=== PATIENT | female | born 1965 | race Caucasian/White ===

== ENCOUNTER 2016-07-29 14:50 | Emergency (ER) | payer MEDICAID ==
[2016-07-29] MEDS ORDERED: ALBUTEROL NEB 2.5 MG/3 ML INH STA (15:44)
[2016-07-29] MEDS ORDERED: DEXAMETHASONE 10 MG/ML VIAL PO STA (15:44)
[2016-07-29] MEDS ORDERED: guaiFENesin/CODEINE 5 ML UDC PO STA (15:44)
[2016-07-29] MEDS ORDERED: DEXAMETHASONE 10 MG/ML VIAL ONE (15:47)
[2016-07-29] MEDS ORDERED: CHERRY SYRUP 10 ML UDC PO ONE (15:47)
[2016-07-29] MEDS ORDERED: guaiFENesin/CODEINE 5 ML UDC ONE (15:47)
[2016-07-29] MEDS ORDERED: ALBUTEROL NEB 2.5 MG/3 ML INH ONE (16:20)
== END 2016-07-29 17:02 | disposition home or self-care (01) ==
DX: J06.9 Acute upper respiratory infection, unspecified (principal)
CPT/HCPCS: 71020; 94640; 99283; A9270; J7613

== ENCOUNTER 2017-12-08 15:22 | Outpatient (CLI) | payer MEDICAID ==
--- NOTE | 2017-12-09 09:54 | Mammography Report ---
Procedure Date: 12/08/2017 Accession Number: [id number] / [id number] Procedure: ANDRE - Screening Mammo Dig Bilat CPT Code: FULL RESULT: EXAM: Screening Mammo Dig Bilat DATE: 12/08/2017 3:45 PM CLINICAL HISTORY: 52-year-old for screening TECHNIQUE: Bilateral CC and MLO views were obtained. COMPARISON: 06/18/2014 FINDINGS: The breasts demonstrate scattered fibroglandular densities bilaterally. Coarse, typically benign calcifications are present. No suspicious masses, clustered microcalcifications, or regions of architectural distortion are identified. IMPRESSION: Benign findings RECOMMENDATION: Routine annual screening unless otherwise clinically indicated. BIRADS CATEGORY 2: Benign findings STANDARD QUALIFYING STATEMENTS: 1. This examination was reviewed with the aid of Computer-Aided Detection (CAD). 2. A negative or benign imaging report should not delay biopsy if clinically suspicious findings are present. Consider surgical consultation if warrented. More than 5% of cancers are not identified by imaging. 3. Dense breasts may obscure an underlying neoplasm.
== END 2017-12-08 15:23 | disposition home or self-care (01) ==
LOC: DI 15:22
PROVIDERS: ATTEND Nurse Practitioner Gerontology
DX: Z00.00 Encounter for general adult medical examination without abnormal findings (principal)
CPT/HCPCS: 77067

== ENCOUNTER 2017-12-09 07:15 | Outpatient (CLI) | payer MEDICAID ==
[2017-12-09 07:55] LABS: ALBUMIN/GLOBULIN RATIO 1.2 (1.0-2.2); ALKALINE PHOSPHATASE 61 IU/L (42-121); ALT ALANINE AMINOTRANSFERASE 18 IU/L (10-60); AST ASPARTATE AMINOTRANSFERASE 19 IU/L (10-42); BILIRUBIN,TOTAL 0.8 mg/dL (0.2-1.0); BUN - BLOOD UREA NITROGEN 10 mg/dL (6-20); CALCIUM 8.8 mg/dL (8.5-10.3); CARBON DIOXIDE - CO2 29 mmol/L (21-32); CHLORIDE 102 mmol/L (101-111); CHOL/HDL RATIO 4.5 (<4.4); CHOLESTEROL 264 mg/dL; CREATININE 0.9 mg/dL (0.4-1.0); GFR - MDRD 65 (>89); GLUCOSE 97 mg/dL (70-100); HDL CHOLESTEROL 59 mg/dL; LDL CHOLESTEROL,CALCULATED 187 mg/dL; LDL/HDL RATIO 3.2 (<4.4); SODIUM 136 mmol/L (135-145); TOTAL PROTEIN 7.3 g/dL (6.7-8.2); VLDL CHOLESTEROL 18 mg/dL
[2017-12-09 08:19] LABS: BASOPHILS % (AUTO) 0.6 %; EOSINOPHILS # (AUTO) 0.2 10^3/uL (0.0-0.7); EOSINOPHILS % (AUTO) 3.8 %; HGB - HEMOGLOBIN 14.5 g/dL (12.0-16.0); LYMPHOCYTES # (AUTO) 2.3 10^3/uL (1.5-3.5); LYMPHOCYTES % (AUTO) 42.7 %; MEAN CORPUSCULAR HEMOGLOBIN 31.1 pg (27.0-31.0); MEAN CORPUSCULAR HGB CONC 33.3 g/dL (32.0-36.0); MEAN CORPUSCULAR VOLUME 93.4 fL (81.0-99.0); MEAN PLATELET VOLUME 8.3 fL (7.9-10.8); MONOCYTES # (AUTO) 0.4 10^3/uL (0.0-1.0); MONOCYTES % (AUTO) 8.1 %; NEUTROPHILS # (AUTO) 2.4 10^3/uL (1.5-6.6); NEUTROPHILS % (AUTO) 44.8 %; PLT - PLATELET COUNT 282 10^3/uL (130-450); RED BLOOD COUNT 4.67 10^6/uL (4.20-5.40); RED CELL DISTRIBUTION WIDTH 13.1 % (12.0-15.0); WHITE BLOOD COUNT 5.4 x10^3/uL (4.8-10.8)
== END 2017-12-09 07:16 | disposition home or self-care (01) ==
LOC: LAB 07:15
PROVIDERS: ATTEND Nurse Practitioner Gerontology
DX: Z00.00 Encounter for general adult medical examination without abnormal findings (principal); I10 Essential (primary) hypertension
CPT/HCPCS: 36415; 80053; 80061; 83721; 84443; 85025

== ENCOUNTER 2018-05-18 07:46 | Outpatient (CLI) | payer MEDICAID ==
--- NOTE | 2018-05-18 16:03 | Ultrasound Report ---
Reason: CKD STAGE 3 Procedure Date: 05/18/2018 Accession Number: [id number] / [id number] Procedure: US - Retroperitoneal CPT Code: FULL RESULT: EXAM: RENAL ULTRASOUND EXAM DATE: 05/18/2018 10:00 AM. CLINICAL HISTORY: CKD stage 3. COMPARISON: None. TECHNIQUE: Real-time scanning was performed with static images obtained. FINDINGS: Right Kidney: 10.0 cm. Normal echotexture with no stones, contour-deforming masses, or hydronephrosis. Left Kidney: 10.3 cm. Normal echotexture with no stones, contour-deforming masses, or hydronephrosis. Bladder: Bilateral jets seen. The prevoid bladder volume was 375 cc. The postvoid bladder was not interrogated. Other: None. IMPRESSION: No evidence of renal obstruction. No significant cortical atrophy. RADIA
== END 2018-05-18 07:47 | disposition home or self-care (01) ==
LOC: DI 07:46
PROVIDERS: ATTEND Psychiatry & Neurology Neurology
DX: N18.3 Chronic kidney disease, stage 3 (moderate) (principal)
CPT/HCPCS: 76770

== ENCOUNTER 2018-05-21 07:18 | Outpatient (CLI) | payer MEDICAID ==
[2018-05-23 13:21] LABS: HEPATITIS B CORE AB TOTAL NON-REACTIVE (NON-REACTIVE)
[2018-05-23 13:22] LABS: HEPATITIS C ANTIBODY NON-REACTIVE (NON-REACTIVE)
[2018-05-24 08:55] LABS: HEPATITIS B SURFACE ANTIGEN NON-REACTIVE (NON-REACTIVE)
[2018-05-24 16:26] LABS: COMPLEMENT COMPONENT C3C 120 mg/dL (83-193); COMPLEMENT COMPONENT C4C 21 mg/dL (15-57)
[2018-05-25 21:51] LABS: ALBUMIN 4.1 g/dL (3.8-4.8); ALPHA 1 GLOBULIN 0.3 g/dL (0.2-0.3); ALPHA 2 GLOBULIN 0.9 g/dL (0.5-0.9); BETA 1 GLOBULIN 0.4 g/dL (0.4-0.6); BETA 2 GLOBULIN 0.3 g/dL (0.2-0.5); GAMMA GLOBULIN 0.8 g/dL (0.8-1.7)
[2018-05-26 14:16] LABS: ANCA SCREEN NEGATIVE (NEGATIVE)
== END 2018-05-21 07:19 | disposition home or self-care (01) ==
LOC: LAB 07:18
PROVIDERS: ATTEND Psychiatry & Neurology Neurology
DX: I12.9 Hypertensive chronic kidney disease with stage 1 through stage 4 chronic kidney disease, or unspecified chronic kidney disease (principal); N18.3 Chronic kidney disease, stage 3 (moderate)
CPT/HCPCS: 36415; 81599; 82384; 83520; 83835; 84155; 84165; 86021; 86038; 86160; 86225; 86235; 86317; 86704; 86803; 87340

== ENCOUNTER 2018-05-25 16:20 | Outpatient (CLI) | payer MEDICAID ==
[2018-05-29 16:06] LABS: METANEPHRINE 72 mcg/24 h (90-315); NORMETANEPHRINE 276 mcg/24 h (122-676); TOTAL VOLUME 2000 mL
== END 2018-05-25 23:59 | disposition home or self-care (01) ==
LOC: LAB.R 16:20
PROVIDERS: ATTEND Psychiatry & Neurology Neurology
DX: I10 Essential (primary) hypertension (principal)
CPT/HCPCS: 81599; 82384; 82570; 83835; 84585

== ENCOUNTER 2022-09-10 08:33 | Emergency (ER) | payer MEDICAID ==
[2022-09-10 08:47] VITALS: BP 162/85
--- NOTE | 2022-09-10 08:48 | ED Physician Documentation ---
PD HPI LOWER EXT INJURY - Stated complaint Stated Complaint: LFT FOOT PX - Chief complaint Chief Complaint: Trauma Ext - History obtained from History obtained from: Patient - History of Present Illness PD HPI LOW EXT INJURY LOCATION: Left, Toe (4th toe) Type of injury: Blunt / blow (she state she struck her toe during the night) Where injury occurred: Home Timing - onset: Last night Timing - details: Abrupt onset, Still present (hurting to walk on foot regularly. Having to walk on side of foot and even then hurting.) Improved by: Rest Worsened by: Moving, Other (walking) Associated symptoms: Swelling (base of 4th toe on left.). 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, Other - Present Medications Home Medications: Ambulatory Orders Medication Instructions Recorded Confirmed Albuterol Sulfate [Proair Hfa 2 puffs IH QID #1 hfa.aer.ad 07/29/16 Inhaler] Amitriptyline HCl 07/29/16 Azithromycin [Zithromax] 250 mg PO DAILY #6 tablet 07/29/16 dexAMETHasone [Decadron] 4 mg PO DAILY #5 tablet 07/29/16 guaiFENesin/CODEINE [Robitussin AC] 10 ml PO Q6H PRN #240 ml 07/29/16 - Allergies Allergies/Adverse Reactions: Allergies Allergy/AdvReac Type Severity Reaction Status Date / Time Sulfa (Sulfonamide Allergy Unknown Verified 09/10/22 08:47 Antibiotics) - Social History Does the pt smoke?: Yes Smoking Status: Current every day smoker Does the pt drink ETOH?: No PD ED PE NORMAL - Vitals Vital signs reviewed: Yes - General General: Alert and oriented X 3, No acute distress, Well developed/nourished - Derm Derm: Normal color, Warm and dry - Extremities Extremities: Other (The left fourth toe shows a slight deviation of angle compared to the others. It is leaning to the lateral aspect. No significant s tep-off to suggest dislocation. Faint early purple bruising at the base. Normal color and capillary refill at the tip. Tender locally. Ankle not tender. ) - Neuro Neuro: Alert and oriented X 3, No motor deficit, No sensory deficit Results - Vitals Vitals: Vital Signs - 24 hr 09/10/22 08:43 Temperature 36.8 C Heart Rate 107 H Respiratory 20 Rate Blood Pressure 162/85 H O2 Saturation 95 Oxygen O2 Source Room air - Rads (name of study) left toes Relevant Findings:: Prelim report reviewed, EMP independent interpretation of test (fracture shaft proximal phalanx. ), See rad report PD Medical Decision Making - ED course Complexity details: considered differential (can get xray for sprain vs fracturevs dislocaiton.), d/w patient Social Determinants of Health: [place] needs to be doing activities. She does feel she can maneuver crutches. ED course: Toe contusion with pain at the base. Likely fracture. Will get x-ray and see what it looks like. Evaluation of the x-ray showed a small base fracture. We can odalis tapes, splint and use a firm soled shoe. Follow-up with Ortho. Departure - Departure Disposition: 01 Home, Self Care Clinical Impression: Fracture, phalanx, foot Qualifiers: Encounter type: initial encounter Toe: lesser toe Fracture type: closed Phalanx: proximal Fracture alignment: nondisplaced Laterality: left Qualified Code(s): S92.515A - Nondisplaced fracture of proximal phalanx of left lesser toe(s), initial encounter for closed fracture Condition: Stable Record reviewed to determine appropriate education?: Yes Instructions: ED Fx Toe Closed Follow-Up: Orthopedic Care [Provider Group] Comments: The shaft of the proximal part of the is fractured. It is not affecting the joint. As such should heal up okay and provide her normal function. There will be a stepwise improvement in the pain: It will improve reasonably over the first few days as the initial pain and swelling decrease, then it will slowly decrease over a week and a half as the new bone growth firms it and there is less movement, then the final decrease in pain will occur over 3 to 4 weeks as it fully heals up. Progress activity with the foot as able. Odalis tape to support the toe side to side in the firm soled shoe to reduce motion up and down. Activity as tolerated. Use crutches initially if needed and progress without them when able. Aleve 2 tablets to 3 times daily is good. Add Tylenol every 4-6 hours if needed for pain. Particularly elevate and rest and ice the toe often the next couple of days for swelling. Follow-up with your primary care or orthopedics if not improving well over the above described time course. Discharge Date/Time: 09/10/22 10:23
--- NOTE | 2022-09-10 11:30 | XRAY Report ---
PROCEDURE: Toe(s) LT INDICATIONS: struck toe during night TECHNIQUE: 3 views of the fourth toe(s) acquired. COMPARISON: None. FINDINGS: Bones: Fourth digit proximal phalanx shaft fracture at the proximal aspect. Minimal displacement. No intra-articular extension appreciated. No dislocations. Healed fifth metatarsal fracture. No suspicio us bony lesions. Soft tissues: No suspicious soft tissue densities. IMPRESSION: Fourth digit proximal phalanx fracture. Reviewed by: Shan Weinstein MD on 09/10/2022 11:29 AM PDT Approved by: Shan Weinstein MD on 09/10/2022 11:29 AM PDT Station ID: [id number]
== END 2022-09-10 10:23 | disposition home or self-care (01) ==
LOC: ED 08:33
DX: S92.512A Displaced fracture of proximal phalanx of left lesser toe(s), initial encounter for closed fracture (principal); W22.01XA Walked into wall, initial encounter; Y92.009 Unspecified place in unspecified non-institutional (private) residence as the place of occurrence of the external cause; F17.200 Nicotine dependence, unspecified, uncomplicated
CPT/HCPCS: 73660; 99283

== ENCOUNTER 2023-01-28 08:21 | Emergency (ER) | payer MEDICAID ==
[2023-01-28 08:40] VITALS: O2SAT 99
[2023-01-28] MEDS ORDERED: LIDOCAINE PATCH 5% TOP STA (08:45)
[2023-01-28] MEDS ORDERED: CYCLOBENZAPRINE 10 MG TABLET PO STA (09:29)
--- NOTE | 2023-01-28 09:36 | ED Physician Documentation ---
History of Present Illness - Stated complaint Stated Complaint: SOA,LT SIDE PX - Chief complaint Chief Complaint: General - History obtained from History obtained from: Patient - Additonal information Additional information: Patient is a 57-year-old female with a history of polyarteritis nodosa present ing for evaluation of pain to her left shoulder blade that is been present for the past 3 to 4 days. She describes the pain as a burning pain. She states that on Wednesday she did feel some discomfort in her neck and has a history of a pinched nerve in the neck but that pain has improved. She does report on Wednesday that she lifted a heavy bag of feed. But she denies any other known trauma or injury. She denies fever. No numbness or tingling. She does not take a blood thinner. She denies chest pain or feeling short of air. Pain is worse when laying on the affected area.Pain is better when she lifts her left arm up. 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, Other - Present Medications Home Medications: Ambulatory Orders Medication Instructions Recorded Confirmed Albuterol Sulfate [Proair Hfa 2 puffs IH QID #1 hfa.aer.ad 07/29/16 Inhaler] Amitriptyline HCl 07/29/16 Azithromycin [Zithromax] 250 mg PO DAILY #6 tablet 07/29/16 dexAMETHasone [Decadron] 4 mg PO DAILY #5 tablet 07/29/16 guaiFENesin/CODEINE [Robitussin AC] 10 ml PO Q6H PRN #240 ml 07/29/16 Cyclobenzaprine [Flexeril] 10 mg PO TID PRN #20 tablet 01/28/23 Lidocaine Patch 5% [Lidoderm Patch] 1 patch TOP DAILY PRN #10 patch 01/28/23 predniSONE [Deltasone] 20 mg PO [id number] #21 tab 01/28/23 - Allergies Allergies/Adverse Reactions: Allergies Allergy/AdvReac Type Severity Reaction Status Date / Time Sulfa (Sulfonamide Allergy Unknown Verified 01/28/23 08:32 Antibiotics) - Social History Does the pt smoke?: Yes Smoking Status: Current every day smoker Does the pt drink ETOH?: No PD ED PE NORMAL - General General: Alert and oriented X 3, No acute distress, Well developed/nourished - HEENT HEENT: Atraumatic - Neck Neck: Supple, no meningeal sign, No bony TTP - Cardiac Cardiac: RRR, No murmur - Respiratory Respiratory: No respiratory distress, Clear bilaterally - Derm Derm: Warm and dry - Extremities Extremities: No deformity, Normal ROM s pain PD ED PE EXPANDED - Back Back visual: 1 - tenderness Results - Vitals Vitals: Vital Signs - 24 hr 01/28/23 01/28/23 08:26 09:43 Temperature 36.3 C L 36.4 C L Heart Rate 102 H 89 Respiratory 16 16 Rate Blood Pressure 150/83 H 155/82 H O2 Saturation 99 99 Oxygen O2 Source Room air - EKG (time done) 0847 EKG releavant findings:: EKG personally interpreted by author of this note. Relevant findings are: Rate 87, NSR, no STEMI Rate: Rate (enter#) (87) Rhythm: NSR Ischemia: No: ST elevation c/w ischemia PD Medical Decision Making - ED course Complexity details: reviewed results, re-evaluated patient, d/w patient ED course: Patient is a 57-year-old female presenting for evaluation of left upper back pain for the past several days. Pain is worse with palpation and laying on the area and better when she positions her left arm in a certain way. She has no tenderness to the left shoulder. No signs of a septic joint. No signs of rash or infection to the affected area. Given her age I did obtain an EKG and chest x-ray out of an abundance of caution I do not see signs of acute ischemia on her EKG. I feel that pain in this location is very atypical for ACS and Symptoms suggest a musculoskeletal etiology.No migratory symptoms to suggest a dissection. Neurovascularly intact with no weakness noted. Discussed options for supportive care including course of muscle relaxers and steroids which she is agreeable to. She is counseled on need for follow-up with her primary care provider as well as concerning symptoms to return for. Departure - Departure Disposition: 01 Home, Self Care Clinical Impression: Upper back pain on left side Condition: Stable Instructions: ED Spasm Back No Trauma Follow-Up: LILY LANZA ARNP [Physician No Access] - Prescriptions: predniSONE [Deltasone] 20 mg PO [id number] #21 tab Cyclobenzaprine [Flexeril] 10 mg PO TID PRN #20 tablet PRN Reason: Spasms Lidocaine Patch 5% [Lidoderm Patch] 1 patch TOP DAILY PRN #10 patch PRN Reason: pain Comments: You were evaluated for pain to your upper back. This may be related to a muscle strain or pinched nerve. I do not see any rashes to the area or signs of any fracture. I have sent a prescription for a muscle relaxer, lidocaine patches as well as a course of steroids to [facility] in [place]. I would recommend follow-up with your primary care provider. Please return to the emergency department with any worsening symptoms. Forms: PCP List Discharge Date/Time: 01/28/23 09:43
[2023-01-28 09:49] VITALS: BP 155/82
--- NOTE | 2023-01-28 10:48 | XRAY Report ---
PROCEDURE: Chest 1 View X-Ray INDICATIONS: L thoracic pain TECHNIQUE: One view of the chest was acquired. COMPARISON: None. FINDINGS: Surgical changes and devices: None. Lungs and pleura: No pleural effusions or pneumothorax. Lungs are clear. Mediastinum: Mediastinal contours appear normal. Heart size is normal. Bones and chest wall: No suspicious bony lesions. Overlying soft tissues appear unremarkable. IMPRESSION: No acute cardiopulmonary process. Reviewed by: Sanjiv Castano MD on 01/28/2023 10:47 AM PDT Approved by: Sanjiv Castano MD on 01/28/2023 10:47 AM PDT Station ID: [id number]
== END 2023-01-28 09:43 | disposition home or self-care (01) ==
LOC: ED 08:21
DX: M54.6 Pain in thoracic spine (principal); F17.200 Nicotine dependence, unspecified, uncomplicated
CPT/HCPCS: 71045; 93005; 99283; 99284; A9270